=== PATIENT | female | born 1990 | race Two or more races ===

== ENCOUNTER 2018-11-12 22:04 | Emergency (ER) | payer MEDICAID, OTHER ==
[~2018-11-12] VITALS: Ht 165.1 cm; Wt 111.7 kg
[2018-11-12 22:09] VITALS: BP 172/99
--- NOTE | 2018-11-12 23:17 | NUR ---
THIS IS A 28Y/O FEMALE THAT PRESENTS TO ED WITH LEFT SIDED LUMBAR PAIN THAT WRAPS AROUND TO HER LEFT LOWER ABD AQUADRANT. PT DENIES ANY RECENT TRAUMA OR PAIN LIKE THIS BEFORE. PT IS ABLE TO AMBULATE WITH SHUFFELING GAIT. PT REPORTS THAT SHE STILL HAS FULL LEG SENSATIONA ND BOWEL CONTROL. PT DENIES PAINFUL URINATION OR INCREASED FREQUENCY. PT CONNECTED TO ALL MONITORS AND CALL LIGHT IN REACH. AWAITING FURTHER ORDERS.
[2018-11-12 23:18] LABS: BASOPHILS # (AUTO) 0.04 x10^3/uL (0-0.1); BASOPHILS % (AUTO) 0 % (0-1); EOSINOPHILS # (AUTO) 0.15 x10^3/uL (0-0.4); EOSINOPHILS % (AUTO) 1 % (1-7); LYMPHOCYTES # (AUTO) 2.61 x10^3/uL (1-3.4); LYMPHOCYTES % (AUTO) 22 % (22-44); MD NO; MEAN CORPUSCULAR HEMOGLOBIN 29.2 pg (27.0-34.8); MEAN CORPUSCULAR HGB CONC 34.3 g/dL (32.4-35.8); MEAN CORPUSCULAR VOLUME 85.1 fL (80-100); MEAN PLATELET VOLUME 8.1 fL (7.4-10.4); MONOCYTES # (AUTO) 0.55 x10^3/uL (0.2-0.8); MONOCYTES % (AUTO) 5 % (2-9); NEUTROPHILS # (AUTO) 8.55 x10^3/uL (1.8-6.8); NEUTROPHILS % (AUTO) 72 % (42-75); PLATELET COUNT 366 x10^3/uL (130-400); RED BLOOD COUNT 4.46 x10^6/uL (3.82-5.3); RED CELL DISTRIBUTION WIDTH 13.2 % (9.6-15.2)
[2018-11-12 23:30] LABS: ALBUMIN 3.6 g/dL (3.4-5.0); ANION GAP 6 mmol/L (5-15); CALCIUM 9.1 mg/dL (8.5-10.1); CHLORIDE 111 mmol/L (98-107)
[2018-11-12 23:38] LABS: ALANINE AMINOTRANSFERASE 27 U/L (12-78); ALKALINE PHOSPHATASE 48 U/L (45-117); BILIRUBIN,TOTAL 0.4 mg/dL (0.2-1.0); CREATININE 0.81 mg/dL (0.55-1.02); TOTAL PROTEIN 7.7 g/dL (6.4-8.2)
[2018-11-13 00:04] LABS: CULTURE INDICATED? NO; MICROSCOPIC AUTO
--- NOTE | 2018-11-13 00:12 | NUR ---
REPORT RECEIVED FROM [facility]. ASSUMED CARE OF PT. PT RESTING ON GURNEY IN NAD. ALL VITALS STABLE. UA BACK AT THIS TIME. CHART UP FOR RECHECK
[2018-11-13] MEDS ORDERED: KETOROLAC 30 MG/1 ML ONE (00:27)
[2018-11-13] MEDS ORDERED: ACETAMINOPHEN 500 MG TABLET ONE (00:27)
[2018-11-13] MEDS ORDERED: ACETAMINOPHEN 500 MG TABLET PO ONE (00:30)
[2018-11-13] MEDS ORDERED: KETOROLAC 30 MG/1 ML IM ONE (00:30)
--- NOTE | 2018-11-13 00:40 | NUR ---
PT MEDICATED PER EMAR. 5 RIGHTS ADDRESSED. A[address] AT THIS TIME. WILL CONTINUE TO MONITOR.
--- NOTE | 2018-11-13 00:59 | NUR ---
PT BACK FROM CT. AWAITING CT RESULTS AT THIS TIME
--- NOTE | 2018-11-13 01:41 | NUR ---
CT BACK. CHART UP FOR RECHECK
--- NOTE | 2018-11-13 02:09 | NUR ---
Patient/Caregiver given discharge instructions and they have confirmed that they understand the instructions. Patient ambulatory with steady gait.
== END 2018-11-13 02:11 | disposition home or self-care (01) ==
LOC: ED 23:29
DX: N13.2 Hydronephrosis with renal and ureteral calculous obstruction (principal)
CPT/HCPCS: 36415; 72110; 74176; 80053; 81001; 84703; 85025; 96372; 99284; J1885

== ENCOUNTER 2019-01-05 17:46 | Emergency (ER) | payer SELFPAY ==
[~2019-01-05] VITALS: Ht 167.6 cm; Wt 110.9 kg
[2019-01-05 17:48] VITALS: BP 133/80
[2019-01-05] MEDS ORDERED: BIRTH CONTROL (17:58)
== END 2019-01-05 19:54 | disposition home or self-care (01) ==
LOC: ED 19:15
DX: S63.501A Unspecified sprain of right wrist, initial encounter (principal); W19.XXXA Unspecified fall, initial encounter; Y93.89 Activity, other specified; Y92.009 Unspecified place in unspecified non-institutional (private) residence as the place of occurrence of the external cause; Y99.8 Other external cause status
CPT/HCPCS: 29125; 99283

== ENCOUNTER 2021-02-06 12:58 | Emergency (ER) | payer MEDICAID ==
[~2021-02-06] VITALS: Ht 167.6 cm; Wt 126.9 kg
[~2021-02-06 12:58] MED LIST: BIRTH CONTROL
--- NOTE | 2021-02-06 14:35 | NUR ---
pt presents to ed with c/o left flank pain x 2 days. states they have had kidney stones before and feels similar. pt denies painful urination. pt a&o, resps even and unlabored, vss, nadn.
--- NOTE | 2021-02-06 15:05 | NUR ---
Task RN: Pt currently resting on [facility]. No acute distress noted at this time. Urine sample is in lab per electronic lab technician Mine, sample collected in computer at this time. Pt aware we are waiting for imaging and lab results. Call light within reach.
[2021-02-06 15:17] LABS: BASOPHILS % (AUTO) 1 % (0-1); EOSINOPHILS % (AUTO) 3 % (1-7); LYMPHOCYTES % (AUTO) 27 % (22-44); MEAN CORPUSCULAR HEMOGLOBIN 21.9 pg (27.0-34.8); MEAN CORPUSCULAR HGB CONC 31.8 g/dL (32.4-35.8); MONOCYTES % (AUTO) 9 % (2-9); NEUTROPHILS % (AUTO) 60 % (42-75); PLATELET COUNT 451 x10^3/uL (130-400); RED BLOOD COUNT 4.09 x10^6/uL (3.82-5.3)
[2021-02-06 15:27] LABS: ALANINE AMINOTRANSFERASE 109 U/L (12-78); ALBUMIN 3.2 g/dL (3.4-5.0); ANION GAP 6 mmol/L (5-15); CALCIUM 8.8 mg/dL (8.5-10.1); CHLORIDE 109 mmol/L (98-107)
[2021-02-06 15:33] LABS: ALKALINE PHOSPHATASE 59 U/L (45-117); BILIRUBIN,TOTAL 0.2 mg/dL (0.2-1.0); CREATININE 0.69 mg/dL (0.55-1.02); TOTAL PROTEIN 7.7 g/dL (6.4-8.2)
[2021-02-06 15:45] LABS: MICROSCOPIC AUTO
[2021-02-06 16:07] LABS: ANISOCYTOSIS 1+; MICROCYTOSIS 1+
[2021-02-06 16:08] LABS: HYPOCHROMIA 1+; OVALOCYTES 1+; POLYCHROMASIA 1+; STOMATOCYTES 1+
[2021-02-06 16:09] LABS: <PLATELET ESTIMATE> INCREASED; SMALL PLATELETS 1+
[2021-02-06 16:16] VITALS: BP 133/61
--- NOTE | 2021-02-06 16:35 | NUR ---
PT RESTING IN BED, A&O, RESPS EVEN AND UNLABORED, VSS, NADN. AWAITING PENDING LABS AND DISPO. CALL LIGHT IN REACH, NO COMPLAINTS AT THIS TIME.
--- NOTE | 2021-02-06 17:09 | NUR ---
DISCHARGE INSTRUCTIONS REVIEWED, PT EDUCATED ON FOLLOW-UP AND RETURN CRITERIA, VERBALIZED UNDERSTANDING. AMBULATORY TO DISCHARGE WITH STEADY GAIT.
== END 2021-02-06 17:11 | disposition home or self-care (01) ==
LOC: ED 15:38
DX: M54.5 Low back pain (principal); N20.0 Calculus of kidney; R94.5 Abnormal results of liver function studies; D50.8 Other iron deficiency anemias
CPT/HCPCS: 36415; 74176; 80053; 81001; 82728; 83540; 83550; 83690; 84703; 85025; 87086; 99284